=== PATIENT | female | born 1985 ===

== ENCOUNTER 2016-12-12 11:15 | Inpatient (IN) | payer OTHER ==
[~2016-12-12] VITALS: Ht 165.1 cm; Wt 68.0 kg
[2016-12-12 11:36] VITALS: BP 124/71
[2016-12-12 13:21] VITALS: BP 124/76
[2016-12-12 13:53] LABS: MEAN CORPUSCULAR HEMOGLOBIN 30.4 pg (27.0-33.0); MEAN CORPUSCULAR HGB CONC 34.5 g/dl (32.0-36.5); MEAN CORPUSCULAR VOLUME 88.1 fl (80.0-96.0); RED CELL DISTRIBUTION WIDTH 12.8 % (11.5-14.5); WHITE BLOOD COUNT 13.4 K/mm3 (4.0-10.0)
[2016-12-12] MEDS ORDERED: OXYTOCIN 30 UNITS IN 0.9% NaCl 500ML IV BAG (J2590) As Ordered ONE (14:01)
[2016-12-12 14:19] VITALS: BP 111/66
[2016-12-12 14:41] VITALS: BP 129/89
[2016-12-12] MEDS ORDERED: OXYTOCIN DRIP 30 UNITS in APPROPRIATE DILUENT 1 EA IV SCH (16:11)
[2016-12-12] MEDS ORDERED: IBUPROFEN 800 MG TAB PO PRN (16:15)
[2016-12-12] MEDS ORDERED: ACETAMINOPHEN 500 MG TAB PO PRN (16:15)
[2016-12-12] MEDS ORDERED: PROMETHAZINE 25 MG TAB PO PRN (16:15)
[2016-12-12] MEDS ORDERED: RHOGAM 300 MCG (1500 IU) INJ (J2790) IM SCH (16:15)
[2016-12-12] MEDS ORDERED: MEASLES,MUMPS,RUBELLA VACCINE INJ (MMR-II) (90707) SC SCH (16:15)
[2016-12-12] MEDS ORDERED: ONDANSETRON 4MG/2ML VIAL (J2405) IV PRN (16:15)
[2016-12-12] MEDS ORDERED: DIBUCAINE 1% OINTMENT 30GM TOP PRN (16:15)
[2016-12-12] MEDS ORDERED: METHYLERGONOVINE MALEATE 0.2 MG/ML VIAL (J2210) IM PRN (16:15)
[2016-12-12 16:35] VITALS: BP 116/64
[2016-12-12] MEDS: PRENATAL VITAMINS CHEWABLE TABLET PO SCH (16:45)
[2016-12-12 18:55] VITALS: BP 111/69
[2016-12-12] MEDS: DOCUSATE SODIUM 100 MG CAP PO SCH (21:39)
[2016-12-13 06:05] VITALS: BP 112/61
[2016-12-13] MEDS: PRENATAL VITAMINS CHEWABLE TABLET PO SCH (07:34)
[2016-12-13] MEDS: DOCUSATE SODIUM 100 MG CAP PO SCH (07:34)
[2016-12-13] MEDS ORDERED: COLA100C5 PO (10:41)
[2016-12-13] MEDS ORDERED: ACET50TA PO (10:41)
[2016-12-13] MEDS ORDERED: IBUP-1114 PO (10:41)
--- NOTE | 2016-12-15 09:44 | IPN ---
DATE: 12/13/2016 This patient requested circumcision of her male after discussing risks, benefits of circumcision, medical and nonmedical indications, penile block and aftercare. Expressed understanding of penile block aftercare, signed and witnessed the consent form. We await the clearance by the production tech.
== END 2016-12-13 18:30 | disposition home or self-care (01) | DRG 775 ==
LOC: M LDI 11:15 → M OBS 16:03
PROVIDERS: ADMIT Obstetrics & Gynecology; ATTEND Obstetrics & Gynecology
PROC: 10E0XZZ Delivery of Products of Conception, External Approach (ICD-10-PCS; principal; 2016-12-12)
DX: O48.0 Post-term pregnancy (principal); Z3A.40 40 weeks gestation of pregnancy; Z37.0 Single live birth